=== PATIENT | male | born 1945 | race Caucasian/White ===

== ENCOUNTER → 2016-07-29 | Outpatient (CLI) | payer MEDICARE, BC ==
[2016-07-29 12:04] LABS: HEMOGLOBIN 15.8 g/dL (13.5-17.0); HGB HCT DIFFERENCE -0.6; MEAN CORPUSCULAR HEMOGLOBIN 27.1 pg (27.0-33.4); MEAN CORPUSCULAR VOLUME 82 fl (80-97); RED BLOOD COUNT 5.84 10^6/uL (4.35-5.55); RED CELL DISTRIBUTION WIDTH 17.3 % (11.5-14.0); WHITE BLOOD COUNT 9.7 10^3/uL (4.0-10.5)
[2016-07-29 12:28] LABS: BASOPHILS % (MANUAL) 0 % (0-2); EOSINOPHILS % (MANUAL) 4 % (0-6); LYMPHOCYTES % (MANUAL) 30 % (13-45); TOTAL CELLS COUNTED 100
[2016-07-29 12:30] LABS: ANISOCYTOSIS 1+; SMUDGE CELLS PRESENT; TOXIC GRANULATION SLIGHT
[2016-07-29 12:37] LABS: ALANINE AMINOTRANSFERASE 92 U/L (21-72); ALBUMIN 3.8 g/dL (3.5-5.0); ALKALINE PHOSPHATASE 104 U/L (38-126); ANION GAP 14 (5-19); ASPARTATE AMINO TRANSFERASE 95 U/L (17-59); BILIRUBIN,DIRECT 0.4 mg/dL (0.0-0.4); BILIRUBIN,TOTAL 0.8 mg/dL (0.2-1.3); BLOOD UREA NITROGEN 19 mg/dL (7-20); CALCIUM 9.4 mg/dL (8.4-10.2); CARBON DIOXIDE 29 mmol/L (22-30); CHLORIDE 97 mmol/L (98-107); CREATININE RESULT 0.72 mg/dL (0.52-1.25); GLUCOSE 157 mg/dL (75-110); POTASSIUM 4.2 mmol/L (3.6-5.0); TOTAL PROTEIN 6.6 g/dL (6.3-8.2)
--- NOTE | 2016-07-29 20:43 | EKG REPORT ---
SEVERITY:- ABNORMAL ECG - SINUS RHYTHM FIRST DEGREE AV BLOCK : Confirmed by: Steve King 29-Jul-2016 20:42:52
== END ==
LOC: OD 10:59
PROVIDERS: ATTEND Physician Assistant
DX: I10 Essential (primary) hypertension (principal); Z11.2 Encounter for screening for other bacterial diseases
CPT/HCPCS: 36415; 80053; 85025; 87070; 93005; 93010

== ENCOUNTER → 2017-02-17 | Outpatient (CLI) | payer MEDICARE, BC ==
--- NOTE | 2017-02-17 20:18 | EKG REPORT ---
SEVERITY:- ABNORMAL ECG - SINUS RHYTHM FIRST DEGREE AV BLOCK : Confirmed by: Reyna Tello MD 17-Feb-2017 20:17:48
== END ==
LOC: OD 14:28
PROVIDERS: ATTEND Nurse Practitioner Family
DX: R07.9 Chest pain, unspecified (principal)
CPT/HCPCS: 93005; 93010

== ENCOUNTER 2017-03-16 07:11 | Day surgery (SDC) | payer MEDICARE, BC ==
--- NOTE | 2017-03-10 15:37 | HISTORY AND PHYSICAL E ---
History and Physical NAME: TRI PETERSON : 1945 AGE: 71Y ADMITTED: 03/16/2017 ROOM: CHIEF COMPLAINT: The patient presented for colon screening. HISTORY OF PRESENT ILLNESS: History of polyps. The patient did have colonoscopy 2010 showing hemorrhoids, poor prep. Colonoscopy scheduled for follow up. REVIEW OF SYSTEMS: RESPIRATORY: COPD, sleep apnea. GASTROINTESTINAL: Anemia, diverticulosis, polyps. PHYSICAL EXAMINATION: VITAL SIGNS: Blood pressure 150/80, pulse 80, respirations 20, temperature 98. HEAD, EARS, EYES, NOSE AND THROAT: Normal. NECK: Supple. LUNGS: Clear. ABDOMEN: Soft. NEUROLOGIC: Exam negative. CONCLUSION: Colon exam scheduled for 03/16. DICTATING PHYSICIAN: ILDA DUMONT M.D. [id number] PHY#: [id number] ID: [id number] JOB#: [id number] ACCT: [id number] cc:ILDA DUMONT M.D. >
[~2017-03-16 07:11] MED LIST: CEFAZOLIN 1 GM/D5W RTU 1 GM/50 ML RTUPB IV PRN
[2017-03-16] MEDS ORDERED: GLYCOPYRROLATE INJ 0.4 MG/2 ML VIAL ONE (07:13)
[2017-03-16] MEDS ORDERED: ONDANSETRON HCL INJ/PF 4 MG/2 ML SDV ONE (07:13)
[2017-03-16] MEDS ORDERED: LIDOCAINE 2% JELLY 30 ML TUBE ONE (07:13)
[2017-03-16] MEDS ORDERED: NALOXONE HCL INJ/PF 0.4 MG/1 ML SDV ONE (07:13)
[2017-03-16] MEDS ORDERED: GLUCAGON,HUMAN RECOMB 1 MG INJ ONE (07:14)
[2017-03-16] MEDS ORDERED: FLUMAZENIL INJ 0.5 MG/5 ML VIAL ONE (07:14)
[2017-03-16] MEDS ORDERED: MIDAZOLAM 2 MG/2 ML INJ ONE (07:14)
[2017-03-16] MEDS ORDERED: EPINEPHRINE INJ 1 MG/10 ML DISP.SYRIN ONE (07:14)
[2017-03-16] MEDS ORDERED: DIPHENHYDRAMINE HCL 50 MG/ML VIAL IV PRN (07:50)
[2017-03-16] MEDS ORDERED: MEPERIDINE HCL/PF INJ 25 MG/1 ML DISP.SYRIN IV PRN (07:50)
[2017-03-16] MEDS ORDERED: MORPHINE SULFATE 10 MG/ML INJ IV PRN (07:50)
[2017-03-16] MEDS ORDERED: FENTANYL CITRATE INJ/PF 100 MCG/2 ML AMPUL IV PRN ×3 (07:50)
[2017-03-16] MEDS ORDERED: PROMETHAZINE HCL INJ 25 MG/1 ML VIAL IV PRN ×2 (07:50)
[2017-03-16] MEDS ORDERED: OXYCODONE-ACETAMINOPHEN 5-325 MG TABLET PO PRN ×2 (07:50)
[2017-03-16] MEDS: FENTANYL CITRATE INJ/PF 100 MCG/2 ML AMPUL ONE ×3 (08:14→08:19)
[2017-03-16 09:46] LABS: ABSOLUTE BASOPHILS # (AUTO) 0.1 10^3/uL (0.0-0.2); ABSOLUTE EOSINOPHILS # (AUTO) 0.1 10^3/uL (0.0-0.6); ABSOLUTE LYMPHOCYTES (AUTO) 3.1 10^3/uL (0.5-4.7); ABSOLUTE MONOCYTES (AUTO) 0.6 10^3/uL (0.1-1.4); ABSOLUTE NEUT (AUTO) 5.3 10^3/uL (1.7-8.2); BASOPHILS % (AUTO) 0.6 % (0-2); EOSINOPHILS % (AUTO) 1.6 % (0-6); HEMATOCRIT 37.8 % (37.9-51.0); HGB HCT DIFFERENCE -1.8; LYMPHOCYTES % (AUTO) 33.2 % (13-45); MEAN CORPUSCULAR HEMOGLOBIN 23.5 pg (27.0-33.4); MEAN CORPUSCULAR HGB CONC 31.8 g/dL (32.0-36.0); MEAN CORPUSCULAR VOLUME 74 fl (80-97); RED BLOOD COUNT 5.12 10^6/uL (4.35-5.55); RED CELL DISTRIBUTION WIDTH 17.1 % (11.5-14.0); SEGMENTED NEUTROPHILS % (AUTO) 57.6 % (42-78); WHITE BLOOD COUNT 9.2 10^3/uL (4.0-10.5)
[2017-03-16 10:45] VITALS: BP 135/68
--- NOTE | 2017-03-16 12:24 | DISCHARGE SUMMARY E ---
Discharge Summary NAME: TRI PETERSON : 1945 AGE: 71Y ADMITTED: 03/16/2017 DISCHARGED: 03/16/2017 SUMMARY: The patient is 71 years old, presented for colon screening. Patient has the following comorbidities: COPD, sleep apnea, irregular heartbeat, hypothyroid, kidney stones. Patient did have surgery on right leg, right ankle, right knee replacement. Patient was given 1 g of Ancef IV prior to colonoscopy. Today's colon shows polyps in rectum, sigmoid and cecum. DISCHARGE PLAN: 1. Soft diet. 2. Baseline CBC and CEA. 3. Consideration of follow-up colonoscopy in 1 year. DICTATING PHYSICIAN: ILDA DUMONT M.D. [id number] [id number] PHY#: [id number] ID: [id number] JOB#: [id number] ACCT: [id number] cc:ILDA DUMONT M.D. >
--- NOTE | 2017-03-16 12:37 | OPERATIVE REPORT E ---
Operative Report NAME: TRI PETERSON : 1945 AGE: 71Y DATE OF SURGERY: 03/16/2017 ROOM: PREOPERATIVE DIAGNOSIS: Colon screening. POSTOPERATIVE DIAGNOSES: 1. A 3 mm rectal polyp injected and resected. 2. A 1/2 cm sigmoid polyp inject and resect. 3. Biopsy prominent ileocecal valve, question polyp. PROCEDURE: Colonoscopy. SURGEON: ILDA DUMONT M.D. ANESTHESIA: Versed 2 and fentanyl 100. TISSUE REMOVED OR ALTERED: 1. Biopsy of ileocecal valve. Question polyp in the ileocecal valve. 2. Sigmoid polyp 1 cm inject and resect. 3. A 3 mm polyp in rectum injected and resected. Cauterized bleeding site from the resection site. PROCEDURE: Rectal exam: A 3 mm polyp. Sessile, inject and resect. Cauterized bleeding site. Sigmoid 1/2 cm, inject and resect. No bleeding. Descending colon normal. Moderate amount of stool. Transverse colon normal. Ascending colon normal. Cecum: Prominent ileocecal valve. Biopsy obtained. Scope withdrawn from cecum, ascending, transverse, descending, sigmoid all the way to the rectum. CONCLUSION: Colon polyps. PLAN: Hold aspirin and nonsteroidal. Full liquid diet today. Low residue diet for 3 days. Baseline CBC and CEA. Consider followup colonoscopy after 1 year. DICTATING PHYSICIAN: ILDA DUMONT M.D. [id number] [id number] PHY#: [id number] ID: [id number] JOB#: [id number] ACCT: [id number] cc:[facility] ILDA DUMONT M.D. >
== END 2017-03-16 09:55 | disposition home or self-care (01) ==
LOC: END 07:11
PROVIDERS: ATTEND Specialist
PROC: 0DBN8ZX Excision of Sigmoid Colon, Via Natural or Artificial Opening Endoscopic, Diagnostic (ICD-10-PCS; principal; 2017-03-16 08:00)
PROC: 0DBC8ZX Excision of Ileocecal Valve, Via Natural or Artificial Opening Endoscopic, Diagnostic (ICD-10-PCS; 2017-03-16 08:00)
PROC: 3E0H8GC Introduction of Other Therapeutic Substance into Lower GI, Via Natural or Artificial Opening Endoscopic (ICD-10-PCS; 2017-03-16 08:00)
DX: Z12.11 Encounter for screening for malignant neoplasm of colon (principal); D12.7 Benign neoplasm of rectosigmoid junction; R97.0 Elevated carcinoembryonic antigen [CEA]; J44.9 Chronic obstructive pulmonary disease, unspecified; G47.30 Sleep apnea, unspecified; D64.9 Anemia, unspecified; E03.9 Hypothyroidism, unspecified; Z96.651 Presence of right artificial knee joint; I49.9 Cardiac arrhythmia, unspecified
CPT/HCPCS: 45380; 45385; 45381; 36415; 82962; 82378; 85025; 88305 ×2; J2250; J0690; J0171; J3010; J1610; J2405; J2310; J3490

== ENCOUNTER 2020-03-30 16:12 | Emergency (ER) | payer OTHER, MEDICARE, BC ==
--- NOTE | 2020-03-30 16:40 | ER Document Report ---
ED Medical Screen (RME) - General Chief Complaint: Weakness Stated Complaint: WEAKNESS Time Seen by Provider: 03/30/20 16:34 Primary Care Provider: BHARATH LOPEZ CRNP [Primary Care Provider] - Follow up as needed Mode of Arrival: Wheelchair Information source: Patient Notes: 74-year-old male presented to ED for weakness all over more so for the last 48 hours. He cannot sleep cannot get comfortable his back hurts. He does have a long history of anemia plus multiple other medical history I have reviewed his medical history and surgical history with him and have updated that. Patient is alert and oriented respirations regular nonlabored we will get blood and urine type and screen and chest x-ray and he will be seen by another provider. I have greeted and performed a rapid initial assessment of this patient. A comprehensive ED assessment and evaluation of the patient, analysis of test results and completion of medical decision making process will be conducted by an additional ED providers. TRAVEL OUTSIDE OF THE [place] IN LAST 30 DAYS: No - Related Data Allergies/Adverse Reactions: diazepam [From Valium] Adverse Reaction (Mild, Verified 03/16/17 07:16) gay mushrooms Allergy (Severe, Uncoded 03/16/17 07:16) Anaphylaxis Past Medical History - General Information source: Patient - Social History Cigarette use (# per day): No - Not been for 25 years Frequency of alcohol use: Occasional Drug Abuse: None Lives with: Alone, Spouse/Significant other - Past Medical History Cardiac Medical History: Reports: Hx Coronary Artery Disease - high cholesterol, Hx Hypercholesterolemia, Hx Hypertension Pulmonary Medical History: Reports: Hx Bronchitis, Hx COPD, Hx Pneumonia EENT Medical History: Reports: None Neurological Medical History: Reports: None Endocrine Medical History: Reports: Hx Hypothyroidism Renal/ Medical History: Reports: Hx Kidney Stones Malignancy Medical History: Reports None GI Medical History: Reports: Hx Diverticulitis, Hx Gastritis, Hx Gastroesophageal Reflux Disease, Hx Colonoscopy, Hx Endoscopy Musculoskeltal Medical History: Reports Hx Arthritis, Reports Hx Musculoskeletal Trauma Skin Medical History: Reports None Psychiatric Medical History: Reports: None Traumatic Medical History: Reports: Hx Fractures Infectious Medical History: Reports: None Past Surgical History: Reports: Hx Cardiac Catheterization, Hx Coronary Stent, Hx Orthopedic Surgery - Right ankle wrist right knee replacement left knee surgery for shoulder re - Immunizations Immunizations up to date: Yes Hx Diphtheria, Pertussis, Tetanus Vaccination: Yes History of Pneumococcal Vaccine: Yes - This year History of Influenza Vaccine for 01/2019 - 07/2019 Season: Yes Physical Exam - Vital signs Vitals: Temp Pulse Resp BP Pulse Ox 98.4 F 75 20 123/48 L 95 03/30/20 16:28 03/30/20 16:28 03/30/20 16:28 03/30/20 16:28 03/30/20 16:28 Course - Vital Signs Vital signs: Temp Pulse Resp BP Pulse Ox 98.4 F 75 20 123/48 L 95 03/30/20 16:28 03/30/20 16:28 03/30/20 16:28 03/30/20 16:28 03/30/20 16:28 Doctor's Discharge - Discharge Referrals: BHARATH LOPEZ CRNP [Primary Care Provider] - Follow up as needed
--- NOTE | 2020-03-30 17:36 | RADIOLOGY REPORT (SQ) ---
EXAM DESCRIPTION: CHEST 2 VIEWS IMAGES COMPLETED DATE/TIME: 03/30/2020 5:27 pm REASON FOR STUDY: Short of breath weak COMPARISON: None. EXAM PARAMETERS: NUMBER OF VIEWS: two views TECHNIQUE: Digital Frontal and Lateral radiographic views of the chest acquired. RADIATION DOSE: NA LIMITATIONS: none FINDINGS: LUNGS AND PLEURA: Bilateral pleural effusions left greater than right. No opacities. MEDIASTINUM AND HILAR STRUCTURES: No masses or contour abnormalities. HEART AND VASCULAR STRUCTURES: Heart normal size. No evidence for failure. BONES: Shoulder replacement HARDWARE: None in the chest. OTHER: No other significant finding. IMPRESSION: Bilateral pleural effusions left greater than right. TECHNICAL DOCUMENTATION: JOB ID: [id number] 2010 [employer]- All Rights Reserved Reading location - IP/workstation name: [email or web address]
[2020-03-30] MEDS ORDERED: NORMAL SALINE 1000 ML 1,000 ML IV ONE (17:48)
[2020-03-30] MEDS ORDERED: KETOROLAC TROMETHAMINE INJ/PF 30 MG/1 ML SDV IV ONE (17:48)
[2020-03-30] MEDS ORDERED: METHYLPREDNISOLONE INJ 40 MG/1 ML SDV IV ONE (17:49)
--- NOTE | 2020-03-30 17:50 | ER Document Report ---
ED General - General Chief Complaint: Weakness Stated Complaint: WEAKNESS Time Seen by Provider: 03/30/20 16:34 Primary Care Provider: BHARATH LOPEZ CRNP [COMMUNITY BASED STAFF] - Follow up as needed Mode of Arrival: Wheelchair Information source: Patient Notes: 74-year-old man presents to the emergency department with a complaint of pain in his upper middle and lower back, history of rheumatoid arthritis and presently taking oxycodone for pain management. He occasionally uses ibuprofen but no other medicines for the arthritis. He complains now of worsening pain and fatigue. He denies fever, cough, shortness of breath or chest pain. He states that he has lost his appetite and has been eating poorly over the past 2 days due to the severity of pain and. He is unable to rest at night due to pain. He presently rates his pain 10/10 TRAVEL OUTSIDE OF THE [place] IN LAST 30 DAYS: No - Related Data Allergies/Adverse Reactions: diazepam [From Valium] Adverse Reaction (Mild, Verified 03/30/20 18:23) gay mushrooms Allergy (Severe, Uncoded 03/30/20 18:23) Anaphylaxis Past Medical History - General Information source: Patient - Social History Smoking Status: Unknown if Ever Smoked Cigarette use (# per day): No - Not been for 25 years Frequency of alcohol use: Occasional Drug Abuse: None Lives with: Alone, Spouse/Significant other Family History: Reviewed & Not Pertinent - Past Medical History Cardiac Medical History: Reports: Hx Coronary Artery Disease - high cholesterol, Hx Hypercholesterolemia, Hx Hypertension Pulmonary Medical History: Reports: Hx Bronchitis, Hx COPD, Hx Pneumonia EENT Medical History: Reports: None Neurological Medical History: Reports: None Endocrine Medical History: Reports: Hx Hypothyroidism Renal/ Medical History: Reports: Hx Kidney Stones Malignancy Medical History: Reports None GI Medical History: Reports: Hx Diverticulitis, Hx Gastritis, Hx Gastroesophageal Reflux Disease, Hx Colonoscopy, Hx Endoscopy Musculoskeletal Medical History: Reports Hx Arthritis, Reports Hx Musculoskeletal Trauma Skin Medical History: Reports None Psychiatric Medical History: Reports: None Traumatic Medical History: Reports: Hx Fractures Infectious Medical History: Reports: None Past Surgical History: Reports: Hx Cardiac Catheterization, Hx Coronary Stent, Hx Orthopedic Surgery - Right ankle wrist right knee replacement left knee surgery for shoulder re - Immunizations Immunizations up to date: Yes Hx Diphtheria, Pertussis, Tetanus Vaccination: Yes History of Pneumococcal Vaccine: Yes - This year Hx Pneumococcal Vaccination: 03/15/16 Review of Systems - Review of Systems Notes: Constitutional: Negative for fever. HENT: Negative for sore throat. Eyes: Negative for visual changes. Cardiovascular: Negative for chest pain. Respiratory: Negative for shortness of breath. Gastrointestinal: Negative for abdominal pain, vomiting or diarrhea. Genitourinary: Negative for dysuria. Musculoskeletal: See HPI Skin: Negative for rash. Neurological: Negative for headaches, weakness or numbness. 10 point ROS negative except as marked above and in HPI. Physical Exam - Vital signs Vitals: Temp Pulse Resp BP Pulse Ox 98.4 F 75 20 123/48 L 95 03/30/20 16:28 03/30/20 16:28 03/30/20 16:28 03/30/20 16:28 03/30/20 16:28 - Notes Notes: PHYSICAL EXAMINATION: Physical Exam: General: Overweight 74-year-old man in moderate distress secondary to back pain HEENT: NC/AT, pupils equal round and reactive to light, MM moist,nares clear, oropharynx clear, airway patent Neck: supple, no adenopathy, no masses. Good range of motion Lungs: clear, no wheezing, no rales no rhonchi CVS: Regular rate and rhythm no murmur gallop or rub Abdomen: Soft, active, nontender, no masses, no hepatosplenomegaly Ext: + Deformity is in the fingers related to arthritis and tenderness of the cervical thoracic and lumbar regions secondary to palpation. Neuro: Alert and responsive, moving all 4 extremities on command, cranial nerves intact, no focal findings Skin: Intact no open lesions, no rash PSYCH: Normal mood, normal affect. Course - Re-evaluation Re-evalutation: 03/30/20 21:38 Patient is noted to have elevated troponin, it is not positive he has a history of aortic stenosis, the test was ordered as part of a screening number for any and. Patient repeat test has not had a significant elevation and given that he is feeling much better with improvement of the back pain and arthritis related pain he is being discharged home to follow-up with the [place] outpatient clinic as needed. I discussed the findings of the lab as well as any concerns with the patient. He states that he is ready to go home. 03/30/20 21:40 - Vital Signs Vital signs: Temp Pulse Resp BP Pulse Ox 98.4 F 75 14 136/56 H 97 03/30/20 16:28 03/30/20 16:28 03/30/20 20:01 03/30/20 22:09 03/30/20 22:09 - Laboratory Result Diagrams: 03/30/20 17:50 03/30/20 17:50 Laboratory results interpreted by me: 03/30/20 03/30/20 03/30/20 17:50 17:50 19:50 RBC 4.30 L Hgb 11.5 L Hct 35.0 L MCH 26.7 L RDW 16.4 H Plt Count 81 L Lymph % (Auto) 45.5 H BUN 27 H Albumin 3.2 L Urine Protein 30 H Urine Ketones TRACE H Urine Urobilinogen 2.0 H - Diagnostic Test Radiology reviewed: Image reviewed, Reports reviewed Radiology results interpreted by me: 03/30/20 21:40 Chest X-Ray 03/30/20 16:39 IMPRESSION: Bilateral pleural effusions left greater than right. Discharge - Discharge Clinical Impression: Rheumatoid arthritis flare, Back pain Condition: Good Disposition: HOME, SELF-CARE Instructions: Rheumatoid Arthritis ([facility]) Additional Instructions: You are seen in the emergency department with exacerbation of pain likely related to your rheumatoid arthritis. Please continue your usual medications for pain. Please follow-up with your doctors at the [facility] for long-term management. If your symptoms are worsening or if you have other concerns you may return to the emergency department for further evaluation treatment HOME CARE INSTRUCTIONS & INFORMATION: Thank you for choosing us for your medical needs. We hope you're satisfied with the care you received. After you leave, you must properly care for your problem and, at the same time, observe its progress. Any condition can change. Some illnesses can change rapidly over hours or days. If your condition worsens, return to the Emergency Department or see your physician promptly. ABOUT YOUR X-RAYS AND EKG'S: If you had an EKG or X-rays taken, they have been read by the Emergency Physician. The X-rays and EKG's will also be read by a Radiologist or Radio Communication Coordinator within 24 hours. If discrepancies are noted, you will be notified by telephone. Please be certain the ED has a correct telephone number & address where you can be reached. Also, realize that some fractures or abnormalities do not show up on initial X-rays. If your symptoms continue, see your physician. ABOUT YOUR LABORATORY TEST: If you had laboratory tests, the results have been reviewed by the Emergency Physician. Some test results (for example cultures) may not be available for several days. You will be contacted if any test result shows you need additional treatment. Please be certain the ED has a correct telephone number and address where you can be reached. ABOUT YOUR MEDICATIONS: You will receive instructions on how to take your medicine on the prescription label you receive. Additional information may be provided by the Pharmacy. If you have questions afterwards, call the ED for clarification or further instructions. Some prescribed medications may cause drowsiness. Do not perform tasks such as driving a car or operating machinery without consulting your Pharmacist. If you feel you need a refill of pain medication, your condition will need re-evaluation. Please do not call for a refill of any medication. ABOUT YOUR SIGNATURE: Signature of this document acknowledges to followin. Understanding that you received emergency treatment and that you may be released before al medical problems are known or treated. Please be certain the ED has a correct phone number & address where you can be reached. 2. Acknowledgement that you will arrange for follow-up care as recommended. 3. Authorization for the Emergency Physician to provide information to your follow-up Physician in order to maximize your care. AT ANY TIME, IF YOUR SYMPTOMS CHANGE SIGNIFICANTLY OR WORSEN OR YOU DEVELOP NEW SYMPTOMS, RETURN TO THE EMERGENCY DEPARTMENT IMMEDIATELY FOR RE-EVALUATION. OUR GOAL IS TO PROVIDE EXCELLENT MEDICAL CARE! WE HOPE THAT WE HAVE MET YOUR EXPECTATIONS DURING YOUR EMERGENCY DEPARTMENT VISIT AND THAT YOU FEEL YOU HAVE RECEIVED EXCELLENT CARE! Referrals: BHARATH LOPEZ CRNP [COMMUNITY BASED STAFF] - Follow up as needed
[2020-03-30 18:17] LABS: ABSOLUTE EOSINOPHILS # (AUTO) 0.2 10^3/uL (0.0-0.6); ABSOLUTE LYMPHOCYTES (AUTO) 4.1 10^3/uL (0.5-4.7); ABSOLUTE MONOCYTES (AUTO) 0.8 10^3/uL (0.1-1.4); BASOPHILS % (AUTO) 0.3 % (0-2); EOSINOPHILS % (AUTO) 1.7 % (0-6); HEMOGLOBIN 11.5 g/dL (13.5-17.0); LYMPHOCYTES % (AUTO) 45.5 % (13-45); MEAN CORPUSCULAR HEMOGLOBIN 26.7 pg (27.0-33.4); MEAN CORPUSCULAR HGB CONC 32.8 g/dL (32.0-36.0); MEAN CORPUSCULAR VOLUME 81 fl (80-97); MONOCYTES % (AUTO) 8.7 % (3-13); RED CELL DISTRIBUTION WIDTH 16.4 % (11.5-14.0); SEGMENTED NEUTROPHILS % (AUTO) 43.8 % (42-78); TOTAL CELLS COUNTED % (AUTO) 100 %
[2020-03-30 18:28] LABS: ALBUMIN 3.2 g/dL (3.5-5.0); ALKALINE PHOSPHATASE 95 U/L (38-126); ANION GAP 6 (5-19); ASPARTATE AMINO TRANSFERASE 56 U/L (17-59); BILIRUBIN,DIRECT 0.3 mg/dL (0.0-0.4); BILIRUBIN,TOTAL 1.2 mg/dL (0.2-1.3); BLOOD UREA NITROGEN 27 mg/dL (7-20); CALCIUM 9.3 mg/dL (8.4-10.2); CARBON DIOXIDE 30 mmol/L (22-30); CHLORIDE 103 mmol/L (98-107); GLUCOSE 91 mg/dL (75-110); POTASSIUM 3.8 mmol/L (3.6-5.0); TOTAL PROTEIN 6.4 g/dL (6.3-8.2)
[2020-03-30 18:30] LABS: C-REACTIVE PROTEIN 8.4 mg/L (<10.0)
[2020-03-30 18:46] LABS: PLATELET COUNT 81 10^3/uL (150-450)
[2020-03-30 19:01] LABS: FERRITIN 22.5 ng/mL (17.9-464.0)
[2020-03-30 20:29] LABS: APPEARANCE,URINE SLIGHTLY-CLOUDY; BILIRUBIN,URINE NEGATIVE (NEGATIVE); COLOR,URINE AMBER; GLUCOSE, URINE NEGATIVE (NEGATIVE); KETONES,URINE TRACE mg/dL (NEGATIVE); LEUKOCYTE ESTERASE,URINE NEGATIVE (NEGATIVE); NITRITE,URINE NEGATIVE (NEGATIVE); PROTEIN,URINE 30 mg/dL (NEGATIVE); URINE SPECIFIC GRAVITY 1.026
[2020-03-30 22:25] VITALS: BP 136/56
== END 2020-03-30 22:25 | disposition home or self-care (01) ==
LOC: ER 16:12
DX: M06.9 Rheumatoid arthritis, unspecified (principal); M54.9 Dorsalgia, unspecified; R79.89 Other specified abnormal findings of blood chemistry; J90 Pleural effusion, not elsewhere classified; R53.83 Other fatigue; R63.0 Anorexia; I10 Essential (primary) hypertension; I25.10 Atherosclerotic heart disease of native coronary artery without angina pectoris; J44.9 Chronic obstructive pulmonary disease, unspecified; Z79.891 Long term (current) use of opiate analgesic; Z87.892 Personal history of anaphylaxis; Z91.018 Allergy to other foods
CPT/HCPCS: 99284; 96361; 96374; 96375; 86900; 86901; 36415; 87086; 86850; 82728; 83690; 85025; 85652; 86140; 80053; 81001; 84484; 71046; J2920; J1885; J7030